=== PATIENT | female | born 1930 | race Caucasian/White ===

== ENCOUNTER → 2017-08-02 | Outpatient (CLI) | payer MEDICARE, OTHER ==
[~2017-08-02] MED LIST: ASPI81TA39 PO; ATOR40TA28 PO; CETI-290 PO; DOCU250C91 PO; DONE10TA8 PO; FLUO-191 PO; FLUT16H NASAL; LEVO175T9 PO; LISI-660 PO; MEMA10TA11 PO; PANT40TA25 PO; SITA50 PO; TRAZ-147 PO
== END | disposition home or self-care (01) ==
LOC: RADPV 13:31
PROVIDERS: ATTEND Physical Medicine & Rehabilitation
DX: M81.0 Age-related osteoporosis without current pathological fracture (principal); M79.89 Other specified soft tissue disorders; M43.12 Spondylolisthesis, cervical region; Z91.81 History of falling
CPT/HCPCS: 72040

== ENCOUNTER → 2017-10-30 | Outpatient (CLI) | payer MEDICARE, OTHER | END | disposition home or self-care (01) | LOC: RADPV 15:38 | PROVIDERS: ATTEND Physical Medicine & Rehabilitation | DX: M25.811 Other specified joint disorders, right shoulder (principal) ==